=== PATIENT | female | born 1995 | race Hispanic/Latino ===

== ENCOUNTER 2017-09-17 15:05 | Emergency (ER) | payer MEDICAID, OTHER ==
[2017-09-17 15:30] LABS: APPEARANCE,URINE Clear (CLEAR); BILIRUBIN,URINE Negative (NEGATIVE); COLOR,URINE Yellow (YELLOW); GLUCOSE, URINE (UA) Negative (NEGATIVE); KETONES,URINE Negative (NEGATIVE); LEUKOCYTE ESTERASE ,URINE Trace (NEGATIVE); NITRATE,URINE Negative (NEGATIVE); OCCULT BLOOD,URINE Large (NEGATIVE); PH,URINE 5.5 (5.0-8.0); PROTEIN,URINE Negative (NEGATIVE)
[2017-09-17 15:33] LABS: HCG,QUAL RESULT NEGATIVE (NEGATIVE)
[2017-09-17] MEDS ORDERED: ONDANSETRON ODT 4 MG TAB ONE (15:35)
[2017-09-17 15:40] LABS: AMPHET/METH SCREEN,URINE NEGATIVE (NEGATIVE); BARBITURATE SCREEN, URINE NEGATIVE (NEGATIVE); BENZODIAZEPINES SCREEN,URINE NEGATIVE (NEGATIVE); CANNABINOID SCREEN,URINE NEGATIVE (NEGATIVE); COCAINE SCREEN,URINE NEGATIVE (NEGATIVE); OPIATE SCREEN,URINE NEGATIVE (NEGATIVE); PHENCYCLIDINE SCREEN,URINE NEGATIVE (NEGATIVE)
[2017-09-17 15:46] LABS: BACTERIA,URINE Rare /HPF (None Seen); MUCUS,URINE Moderate LPF (None Seen); SQUAMOUS EPITHELIAL CELL,UR 0-2 /HPF (0-2); WBC,URINE 0-1 /HPF (0-1)
[2017-09-17] MEDS ORDERED: KETOROLAC TROMETHAMINE 60 MG/2 ML VIAL ONE (16:12)
[2017-09-17 16:15] LABS: BASOPHILS % (AUTO) 0.8 % (0.0-5.0); EOSINOPHILS % (AUTO) 4.9 % (0.0-8.0); HEMATOCRIT 36.6 % (36-48); LYMPHOCYTES % (AUTO) 27.5 % (21.0-51.0); MEAN CORPUSCULAR HEMOGLOBIN 27.9 pg (27.0-33.0); MEAN CORPUSCULAR HGB CONC 33.6 g/dL (32.0-36.0); MEAN CORPUSCULAR VOLUME 82.9 fL (80-100); MONOCYTES % (AUTO) 7.1 % (3.0-13.0); NEUTROPHILS % (AUTO) 59.7 % (40.0-77.0); PLATELET COUNT (AUTO) 318 K/uL (130-400); RED BLOOD CELL COUNT(AUTO) 4.41 MIL/uL (4.00-5.50); RED CELL DISTRIBUTION WIDTH 14.6 % (11.0-15.5)
[2017-09-17 16:24] LABS: CREATININE 0.6 mg/dL (0.5-1.5)
[2017-09-17 16:29] LABS: ALBUMIN 3.8 g/dL (3.5-5.0); BILIRUBIN,TOTAL 0.6 mg/dL (0.2-1.0)
== END 2017-09-17 16:41 | disposition home or self-care (01) ==
LOC: EDH 15:05
DX: K29.00 Acute gastritis without bleeding (principal); N94.6 Dysmenorrhea, unspecified
CPT/HCPCS: 36415; 80053; 80305; 81001; 81025; 83690; 85025; 96372; 99284; J1885

== ENCOUNTER 2017-11-07 13:32 | Emergency (ER) | payer OTHER | END 2017-11-07 14:11 | disposition home or self-care (01) | LOC: EDH 13:32 | DX: B37.3 Candidiasis of vulva and vagina (principal) | CPT/HCPCS: 99281 ==

== ENCOUNTER 2018-12-06 14:36 | Emergency (ER) | payer OTHER ==
[2018-12-06 15:24] LABS: HCG,QUAL RESULT NEGATIVE (NEGATIVE)
[2018-12-06 15:25] LABS: APPEARANCE,URINE Cloudy (CLEAR); BILIRUBIN,URINE Negative (NEGATIVE); COLOR,URINE Dark Yellow (YELLOW); GLUCOSE, URINE (UA) Negative (NEGATIVE); KETONES,URINE Negative (NEGATIVE); LEUKOCYTE ESTERASE ,URINE Trace (NEGATIVE); NITRATE,URINE Negative (NEGATIVE); OCCULT BLOOD,URINE Large (NEGATIVE); PROTEIN,URINE POS 1+ mg/dL (NEGATIVE)
[2018-12-06 16:06] LABS: AMORPHOUS SEDIMENT,UR Moderate /LPF (None Seen); BACTERIA,URINE Moderate /HPF (None Seen)
== END 2018-12-06 14:47 | disposition home or self-care (01) ==
LOC: EDH 14:36
DX: O20.9 Hemorrhage in early pregnancy, unspecified (principal); Z3A.01 Less than 8 weeks gestation of pregnancy
CPT/HCPCS: 81001; 81025

== ENCOUNTER 2019-01-15 23:43 | Emergency (ER) | payer OTHER ==
[2019-01-16] MEDS ORDERED: LIDOCAINE 5% TOPICAL PATCH TP ONE
[2019-01-16] MEDS ORDERED: ACETAMINOPHEN 325 MG TAB ONE (00:01)
== END 2019-01-16 00:16 | disposition home or self-care (01) ==
LOC: EDH 23:43
DX: M54.5 Low back pain (principal)

== ENCOUNTER 2019-10-17 12:21 | Emergency (ER) | payer MEDICAID | END 2019-10-17 12:56 | LOC: EDH 12:21 | DX: Z02.83 Encounter for blood-alcohol and blood-drug test (principal); Z72.0 Tobacco use | CPT/HCPCS: 36415 ==

== ENCOUNTER 2021-12-27 15:52 | Emergency (ER) | payer MEDICAID ==
[~2021-12-27] VITALS: Ht 162.6 cm; Wt 74.8 kg
[2021-12-27 16:19] LABS: BASOPHILS % (AUTO) 0.7 % (0.0-5.0); EOSINOPHILS % (AUTO) 3.1 % (0.0-8.0); HEMATOCRIT 32.9 % (36-48); LYMPHOCYTES % (AUTO) 27.9 % (21.0-51.0); MEAN CORPUSCULAR HEMOGLOBIN 21.9 pg (27.0-33.0); MEAN CORPUSCULAR HGB CONC 30.1 g/dL (32.0-36.0); MEAN CORPUSCULAR VOLUME 72.8 fL (79-99); MONOCYTES % (AUTO) 6.8 % (3.0-13.0); NEUTROPHILS % (AUTO) 61.1 % (40.0-77.0); PLATELET COUNT (AUTO) 337 K/uL (130-400); RED BLOOD CELL COUNT(AUTO) 4.52 MIL/uL (4.00-5.50); RED CELL DISTRIBUTION WIDTH 18.2 % (11.0-15.5)
[2021-12-27 16:23] LABS: APPEARANCE,URINE SL CLOUDY (CLEAR); BILIRUBIN,URINE NEGATIVE (NEGATIVE); COLOR,URINE YELLOW (YELLOW); GLUCOSE, URINE (UA) NEGATIVE (NEGATIVE); KETONES,URINE NEGATIVE (NEGATIVE); LEUKOCYTE ESTERASE ,URINE NEGATIVE (NEGATIVE); NITRATE,URINE NEGATIVE (NEGATIVE); OCCULT BLOOD,URINE NEGATIVE (NEGATIVE); PROTEIN,URINE NEGATIVE (NEGATIVE)
[2021-12-27 16:27] LABS: CREATININE 0.6 mg/dL (0.5-1.5); POTASSIUM 3.8 mmol/L (3.5-5.1)
[2021-12-27 16:30] LABS: HCG,QUALITATIVE URINE NEGATIVE (NEGATIVE)
[2021-12-27] MEDS ORDERED: 0.9%NACL 1000ML 1,000 ML IV ONE (16:30)
[2021-12-27] MEDS ORDERED: FAMOTIDINE 20MG VIAL IV ONE (16:30)
[2021-12-27] MEDS ORDERED: ONDANSETRON 4MG INJ IVP ONE (16:30)
[2021-12-27 16:33] LABS: ALBUMIN 3.9 g/dL (3.5-5.0); TOTAL PROTEIN, SERUM 7.7 g/dL (6.0-8.3)
[2021-12-27 16:45] LABS: BACTERIA,URINE Rare /HPF (None Seen); RBC,URINE 0-1 /HPF (0-1)
[2021-12-27 16:46] LABS: MUCUS,URINE Few LPF (None Seen); SQUAMOUS EPITHELIAL CELL,UR Few /HPF (0-2)
[2021-12-27] MEDS ORDERED: ONDA4TAB10 PO (17:02)
[2021-12-27] MEDS ORDERED: IRON-23 PO (17:02)
[2021-12-27] MEDS ORDERED: CEPH500B PO (17:02)
[2021-12-27] MEDS ORDERED: POLY17PO4 PO (17:02)
[2021-12-27 17:14] VITALS: BP 127/69
== END 2021-12-27 17:15 | disposition home or self-care (01) ==
LOC: EDH 15:52
DX: N93.9 Abnormal uterine and vaginal bleeding, unspecified (principal); D64.9 Anemia, unspecified; N39.0 Urinary tract infection, site not specified; K59.00 Constipation, unspecified; Z98.890 Other specified postprocedural states
CPT/HCPCS: 99284; 96374; 96375; 80053; 85025; 86850; 86900; 86901; 87077; 87088; 87186; 81001; 81025; 36415; J7030; J2405; S0028; J3490

== ENCOUNTER 2022-06-05 12:32 | Emergency (ER) | payer MEDICAID ==
[~2022-06-05] VITALS: Ht 162.6 cm; Wt 74.4 kg
[~2022-06-05 12:32] MED LIST: CEPH500B PO; IRON-23 PO; ONDA4TAB10 PO; POLY17PO4 PO
[2022-06-05 13:39] VITALS: BP 121/72
[2022-06-05 13:46] LABS: BASOPHILS % (AUTO) 0.9 % (0.0-5.0); EOSINOPHILS % (AUTO) 6.7 % (0.0-8.0); LYMPHOCYTES % (AUTO) 24.8 % (21.0-51.0); MEAN CORPUSCULAR VOLUME 76.6 fL (79-99); MONOCYTES % (AUTO) 6.7 % (3.0-13.0); NEUTROPHILS % (AUTO) 60.6 % (40.0-77.0); PLATELET COUNT (AUTO) 346 K/uL (130-400); RED CELL DISTRIBUTION WIDTH 16.5 % (11.0-15.5); WHITE BLOOD COUNT (AUTO) 9.5 K/uL (4.8-10.8)
[2022-06-05 14:01] LABS: CREATININE 0.7 mg/dL (0.5-1.5); POTASSIUM 3.9 mmol/L (3.5-5.1)
[2022-06-05 14:06] LABS: ALBUMIN 3.9 g/dL (3.5-5.0); TOTAL PROTEIN, SERUM 7.8 g/dL (6.0-8.3)
[2022-06-05 14:19] LABS: APPEARANCE,URINE CLEAR (CLEAR); BILIRUBIN,URINE NEGATIVE (NEGATIVE); COLOR,URINE LIGHT-YELLOW (YELLOW); GLUCOSE, URINE (UA) NEGATIVE (NEGATIVE); KETONES,URINE NEGATIVE (NEGATIVE); LEUKOCYTE ESTERASE ,URINE NEGATIVE Leu/uL (NEGATIVE); NITRATE,URINE NEGATIVE (NEGATIVE); OCCULT BLOOD,URINE SMALL (NEGATIVE); PH,URINE 5.5 (5.0-8.0); PROTEIN,URINE NEGATIVE (NEGATIVE); UROBILINOGEN,URINE 0.2 mg/dL (0.2-1.0)
[2022-06-05 14:27] LABS: BACTERIA,URINE MOD /HPF (None Seen); MUCUS,URINE RARE LPF (None Seen); RBC,URINE 0-1 /HPF (0-1); SQUAMOUS EPITHELIAL CELL,UR RARE /HPF (0-2)
[2022-06-05] MEDS ORDERED: NAPR500T6 PO (14:46)
== END 2022-06-05 14:56 | disposition home or self-care (01) ==
LOC: EDH 12:32
DX: R07.89 Other chest pain (principal); Z20.822 Contact with and (suspected) exposure to COVID-19; Z79.899 Other long term (current) drug therapy
CPT/HCPCS: 99283; 87635; 80053; 85025; 87880; 87804 ×2; 81001; 36415; C9803

== ENCOUNTER 2023-11-05 22:16 | Emergency (ER) | payer MEDICAID, OTHER ==
[~2023-11-05] VITALS: Ht 162.6 cm; Wt 89.4 kg
[~2023-11-05 22:16] MED LIST changes: +NAPR500T6 PO; +ONDA-243 PO; -ONDA4TAB10 PO
[2023-11-05 22:20] VITALS: BP 118/70; PULSE 81; RESP 18
== END 2023-11-05 23:02 | disposition home or self-care (01) ==
LOC: EDH 22:16
DX: L08.9 Local infection of the skin and subcutaneous tissue, unspecified (principal); R51.9 Headache, unspecified; H57.12 Ocular pain, left eye; Z79.899 Other long term (current) drug therapy
CPT/HCPCS: 99281